=== PATIENT | male | born 1990 | race Two or more races ===

== ENCOUNTER 2019-10-06 11:27 | Emergency (ER) | payer SELFPAY ==
[~2019-10-06] VITALS: Ht 167.6 cm; Wt 71.0 kg
[2019-10-06] MEDS ORDERED: SODIUM CHLORIDE 0.9% 1,000 ML IV ONE ×2 (11:49→15:45)
[2019-10-06] MEDS ORDERED: LORAZEPAM 2MG/ML CPJ IV ONE ×2 (12:00→15:45)
[2019-10-06 13:01] LABS: BASOPHILS % 0.7 % (0.0-2.0); HEMATOCRIT. 44.2 % (42.0-52.0); HEMOGLOBIN. 15.4 g/dL (14.0-18.0); MEAN CORPUSCULAR VOLUME 83.1 fL (80.0-94.0); MEAN PLATELET VOLUME 8.5 fl (7.4-10.4); MONOCYTES % 5.2 % (2.0-8.0); NEUTROPHILS % 86.1 % (40.0-76.0); PLATELET 290 x1000/uL (130-400); RED BLOOD CELL COUNT 5.32 mill/uL (4.7-6.1)
[2019-10-06 13:05] LABS: CHLORIDE 103 mEq/L (98-107)
[2019-10-06 13:09] LABS: ETHANOL BLOOD 63 mg/dL
[2019-10-06 13:14] LABS: *AMPHETAMINES SCREEN URINE PRESUMTIVE POSITIVE (NEGATIVE); *BARBITURATES SCREEN URINE NEGATIVE (NEGATIVE); *BENZODIAZEPINES SCREEN URINE NEGATIVE (NEGATIVE); *COCAINE SCREEN URINE PRESUMTIVE POSITIVE (NEGATIVE); METHADONE URINE SCREEN NEGATIVE (NEGATIVE)
[2019-10-06 13:14] LABS: CREATINE KINASE 174 IU/L (39-308)
[2019-10-06 13:15] LABS: CANNABINOID URINE SCREEN NEGATIVE (NEGATIVE); OPIATES URINE SCREEN NEGATIVE (NEGATIVE); PHENCYCLIDINE URINE SCREEN NEGATIVE (NEGATIVE)
[2019-10-06] MEDS ORDERED: POTASSIUM CHLORIDE 20MEQ TABLET SR PO ONE (14:00)
[2019-10-06 18:56] VITALS: BP 125/88
== END 2019-10-06 18:57 | disposition home or self-care (01) ==
LOC: ER 11:27
DX: T43.621A Poisoning by amphetamines, accidental (unintentional), initial encounter (principal); T40.5X1A Poisoning by cocaine, accidental (unintentional), initial encounter; E87.6 Hypokalemia; Y92.018 Other place in single-family (private) house as the place of occurrence of the external cause
CPT/HCPCS: 36415; 71045; 80053; 80305; 80320; 82550; 85025; 93005; 96374; 96376; 99285; J2060; J7030; G0480